=== PATIENT | male | born 1985 | race Caucasian/White ===

== ENCOUNTER 2018-11-10 19:13 | Emergency (ER) | payer OTHER, SELFPAY ==
[2018-11-10 19:20] VITALS: BP 126/82; PULSE 64; RESP 16; TEMP 36.1; O2SAT 100; BMI 26.5
--- NOTE | 2018-11-10 19:28 | ED.MALEGU ---
HPI - Male Genitourinary <JUANCARLOS Paulino - Last Filed: 11/10/18 21:37> General Chief complaint: Urogenital-Male Stated complaint: abdominal pain,groin and scrotum pain Time Seen by Provider: 11/10/18 19:18 Source: patient Mode of arrival: ambulatory Limitations: no limitations History of Present Illness HPI Narrative: 33-year-old healthy male that is a nonsmoker here for complaint of left testicular pain that started this morning. Pain radiates into his left lower abdomen. He denies any trauma to the area. He denies any stressors or relievers of his pain. No penile discharge. No urinary symptoms. No nausea vomiting. No fevers no chills. No rectal pain. He denies any sexual partners in the last 8 months. Last bowel movement was yesterday and was unremarkable. Related Data Home Medications Medication Instructions Recorded Confirmed No Known Home Medications 11/10/18 11/10/18 Allergies Allergy/AdvReac Type Severity Reaction Status Date / Time Sulfa (Sulfonamide Allergy Verified 11/10/18 19:20 Antibiotics) Review of Systems <JUANCARLOS Paulino - Last Filed: 11/10/18 21:37> Constitutional Denies chills, Denies fever(s), Denies lethargy and Denies weakness Eyes Denies change in vision, Denies eye discharge, Denies irritation and Denies loss of vision ENT Ears, Nose, Mouth, and Throat: Denies change in voice, Denies neck pain and Denies sore throat Cardiovascular Denies chest pain, Denies irregular heart rhythm, Denies lightheadedness, Denies palpitations, Denies dyspnea, Denies dyspnea on exertion and Denies orthopnea Respiratory Denies cough, Denies dyspnea, Denies dyspnea on exertion and Denies wheezing Gastrointestinal Comments: Left lower abdomen pain Genitourinary Comments: Left testicular pain Musculoskeletal Denies neck pain Integumentary/Breasts Denies pruritus, Denies erythema, Denies rash and Denies wounds Neurologic Denies confusion, Denies loss of vision and Denies weakness Psychiatric Denies anxiety, Denies confusion, Denies depression, Denies homicidal ideation and Denies suicidal ideation Endocrine Denies palpitations Hematologic/Lymphatic Denies easy bruising Allergic/Immunologic Denies wheezing Exam <JUANCARLOS Paulino - Last Filed: 11/10/18 21:37> Initial Vital Signs Initial Vital Signs: Vital Signs Temperature 96.9 F L 11/10/18 19:20 Pulse Rate 64 11/10/18 19:20 Respiratory Rate 16 11/10/18 19:20 Blood Pressure 126/82 11/10/18 19:20 Pulse Oximetry 100 11/10/18 19:20 Const General: cooperative and well developed Nutritional Appearance: well nourished Orientation: alert, awake, oriented x3 and not confused [facility] Mouth: oral mucosae normal, oropharynx normal and moist mucous membranes Eyes Conjunctivae: conjunctivae normal Sclera: sclerae normal Pupils: PERRL EOM: EOM intact bilaterally Resp Effort & Inspection: normal respiratory effort, able to speak in complete sentences, no respiratory distress and no use of accessory muscles Auscultation: clear to auscultation bilaterally, no rales, no rhonchi and no wheezes Cardio Rate: regular rate Rhythm: regular rhythm Heart Sounds: no click, no gallops, no murmurs and no rubs GI Inspection: non-distended Palpation: soft, no hepatosplenomegaly, No guarding, No pulsatile mass and tender (Tenderness to left lower quadrant and pelvic region) Auscultation: normal bowel sounds General: No CVA tenderness Skin General: no rashes or lesions noted, No jaundice and No petechiae Neuro General: alert, oriented x3, gait normal and no focal motor deficits Speech: speech normal <Barry Hook DO - Last Filed: 11/10/18 23:41> Initial Vital Signs Initial Vital Signs: Vital Signs Temperature 96.9 F L 11/10/18 19:20 Pulse Rate 64 11/10/18 19:20 Respiratory Rate 16 11/10/18 19:20 Blood Pressure 126/82 11/10/18 19:20 Pulse Oximetry 100 11/10/18 19:20 Course <JUANCARLOS Paulino - Last Filed: 11/10/18 21:37> Orders Ordered: ED Orders 11/10/18 19:33 US scrotum Stat 11/10/18 19:34 CT abdomen pelvis w con Stat 11/10/18 20:00 Complete Blood Count AUTO DIFF Stat Comprehensive Metabolic Panel Stat Lipase Stat Discontinued Medications Sodium Chloride (Normal Saline 0.9%) 1,000 mls @ 1,000 mls/hr IV BOLUS ONE Stop: 11/10/18 20:32 Last Infusion: 11/10/18 21:20 Dose: 0 mls/hr Admin: 11/10/18 20:09 Dose: 1,000 mls/hr Ketorolac Tromethamine (Toradol) 15 mg IV NOW ONE Stop: 11/10/18 21:17 Last Admin: 11/10/18 21:19 Dose: 15 mg Vital Signs - 8 hr 11/10/18 19:20 11/10/18 21:05 Temperature 96.9 F L Pulse Rate 64 64 Respiratory Rate 16 18 Blood Pressure 126/82 Blood Pressure [Left Arm] 123/79 Pulse Oximetry 100 99 <Barry Hook DO - Last Filed: 11/10/18 23:41> Orders Ordered: ED Orders 11/10/18 19:33 US scrotum Stat 11/10/18 19:34 CT abdomen pelvis w con Stat 11/10/18 20:00 Complete Blood Count AUTO DIFF Stat Comprehensive Metabolic Panel Stat Lipase Stat Discontinued Medications Sodium Chloride (Normal Saline 0.9%) 1,000 mls @ 1,000 mls/hr IV BOLUS ONE Stop: 11/10/18 20:32 Last Infusion: 11/10/18 21:20 Dose: 0 mls/hr Admin: 11/10/18 20:09 Dose: 1,000 mls/hr Ketorolac Tromethamine (Toradol) 15 mg IV NOW ONE Stop: 11/10/18 21:17 Last Admin: 11/10/18 21:19 Dose: 15 mg Vital Signs - 8 hr 11/10/18 19:20 11/10/18 21:05 Temperature 96.9 F L Pulse Rate 64 64 Respiratory Rate 16 18 Blood Pressure 126/82 Blood Pressure [Left Arm] 123/79 Pulse Oximetry 100 99 MDM - Male Genitourinary <JUANCARLOS Paulino - Last Filed: 11/10/18 21:37> Lab Data Result diagrams: 11/10/18 20:00 11/10/18 20:00 Lab Results 11/10/18 11/10/18 Range/Units 20:00 20:00 WBC 7.4 (4.5-11.0) X10^3/uL RBC 5.05 (4.5-5.9) X10^6/uL Hgb 15.5 (13.5-17.5) g/dL Hct 45.3 (41-53) % MCV 89.6 (80-100) fL MCH 30.6 (26-34) PG MCHC 34.2 (30-36) % RDW 13.9 (11.6-14.8) % Plt Count 269 (150-400) X10^3/uL Neut % (Auto) 58.6 (50-75) % Lymph % (Auto) 32.6 (25-40) % [place] % (Auto) 7.1 (3-14) % Eos % (Auto) 1.4 L (2-4) % Baso % (Auto) 0.3 (0-2) % Neut # (Auto) 4300 (6243-4664) /uL Lymph # (Auto) 2400 (9150-6503) /uL [place] # (Auto) 500 (0-900) /uL Eos # (Auto) 100 (0-450) /uL Baso # (Auto) 0 (0-100) /uL Sodium 141 (137-145) mmol/L Potassium 3.7 (3.4-5.1) mmol/L Chloride 102 (98-107) mmol/L Carbon Dioxide 29 (22-32) mmol/L BUN 13 (9-20) mg/dL Creatinine 0.90 (0.66-1.25) mg/dL Estimated GFR > 60.0 (>60) mL/min BUN/Creatinine Ratio 14.4 (6-22) Glucose 106 H (70-100) mg/dL Calcium 9.2 (8.4-10.2) mg/dL Total Bilirubin 0.5 (0.2-1.3) mg/dL AST 30 (17-59) IU/L ALT 34 (21-72) IU/L Alkaline Phosphatase 76 (38-126) U/L Total Protein 7.8 (6.3-8.2) g/dL Albumin 4.5 (3.5-5.0) g/dL Globulin 3.3 (1.7-4.1) g/dL Albumin/Globulin Ratio 1.4 (1.0-2.8) Lipase 96 (23-300) U/L Urine Dip Bedside Urine Glucose Negative Bedside Urine Bilirubin - Negative Bedside Urine Ketone - Negative Urine Specific [place] 1.025 Bedside Urine Occult Blood - Negative Bedside Urine pH 6.5 Bedside Urine Protein - Negative Bedside Urine Urobilinogen +/- 1mg Bedside Urine Nitrite - Negative Bedside Urine Leukocytes - Negative Esterase Imaging Data Scrotal ultrasound: Radiologist's impression: [address] [id number] Ultrasound Report Signed Patient: Leon Jones AMR#: [id number] : 1985Acct:[id number] Age/Sex: 33 / MDate of Service: 11/10/18 Loc: ED Accession Number: [id number] Procedure: US scrotum Ordering Provider: Donovan Gomez PROCEDURE: US SCROTUM INDICATIONS: LEFT TESTICULAR/GROIN PAIN TECHNIQUE: Real-time scanning was performed of the scrotum and testicles, with image documentation. Color and pulse Doppler interrogation was performed of both testicles. COMPARISON: None. FINDINGS: Right: Testicle is normal in size at 3.0 x 3.1 x 3.8 cm, and homogenous in echotexture. Epididymis is normal in overall size and morphology. No hydrocele or varicoceles. Overlying scrotal skin is normal in thickness. Left: Testicle is normal in size at 2.6 x 3.3 x 4.5 cm, and homogeneous in echotexture. Epididymis is normal in overall size and morphology. No hydrocele but there is a moderate varicocele on the left. Overlying scrotal skin is normal in thickness. Doppler: Color and pulse Doppler demonstrate normal and symmetric arterial flow in both testicles. IMPRESSION: Moderate left-sided varicocele, normal appearance of the testicular parenchyma bilaterally. No sign of epididymitis or orchitis. Please also refer to schedule CT abdomen/pelvis for today. Dictated by: Ulices Sosa M.D. on 11/10/2018 at 20:46 Approved by: Ulices Sosa M.D. on 11/10/2018 at 20:48 CT scan - abdomen: Radiologist's impression: [address] [place] [address] [id number] [address] Scan Report Signed Patient: Leon Jones AMR#: [id number] : 1985Acct:[id number] Age/Sex: 33 / MDate of Service: 11/10/18 Loc: ED Accession Number: [id number] Procedure: CT abdomen pelvis w con Ordering Provider: Donovan Gomez PROCEDURE: CT ABDOMEN PELVIS W CON INDICATIONS: Pain to scrotal area radiating into the left abdomen. TECHNIQUE: After the administration of intravenous contrast, 5 mm thick sections acquired from the diaphragm to the symphysis. 5 mm coronal and sagittal reformats were acquired. For radiation dose reduction, the following was used: automated exposure control, adjustment of mA and/or kV according to patient size. COMPARISON: None. FINDINGS: Image quality: Excellent. ABDOMEN: Lung bases: Lung bases are clear. Heart size is normal. Solid organs: Liver is normal in size and enhancement. Gallbladder appears partially contracted. Biliary system is non dilated. Pancreas enhances normally. Spleen is normal in size and enhancement. No adrenal nodules. Kidneys demonstrate normal size and enhancement, without hydronephrosis. Peritoneum and bowel: Bowel loops demonstrate normal wall thickness and caliber. No free fluid or air. Nodes and vessels: No retroperitoneal or mesenteric adenopathy by size criteria. Aorta and inferior vena cava are normal in size. Miscellaneous: No ventral hernias. PELVIS: Genitourinary: Bladder wall thickness is normal. Miscellaneous: No inguinal hernias or adenopathy. Bones: No suspicious bony lesions. No vertebral body compression fractures. IMPRESSION: Source of pain is not found. Partially contracted gallbladder. No inflammation or mass is found along the retroperitoneum bilaterally. A source of asymmetric left varicocele is not seen. Dictated by: Ulices Sosa M.D. on 11/10/2018 at 20:58 Approved by: Ulices Sosa M.D. on 11/10/2018 at 21:00 [facility] Narrative Medical decision making narrative: CBC and Chem panel were obtained were unremarkable. Lipase was normal. Urinalysis was negative for urinary tract infection. Ultrasound of the scrotum area shows a varicocele to the left testicular area. CT of the abdomen was obtained and was negative for any acute findings. Pain into the groin into abdomen area most likely is referred pain. [id number] ibuprofen as needed for any discomfort. Follow up with primary care provider. For any worsening symptoms return to the emergency room. <Barry Hook DO - Last Filed: 11/10/18 23:41> Lab Data Lab Results 11/10/18 11/10/18 Range/Units 20:00 20:00 WBC 7.4 (4.5-11.0) X10^3/uL RBC 5.05 (4.5-5.9) X10^6/uL Hgb 15.5 (13.5-17.5) g/dL Hct 45.3 (41-53) % MCV 89.6 (80-100) fL MCH 30.6 (26-34) PG MCHC 34.2 (30-36) % RDW 13.9 (11.6-14.8) % Plt Count 269 (150-400) X10^3/uL Neut % (Auto) 58.6 (50-75) % Lymph % (Auto) 32.6 (25-40) % [place] % (Auto) 7.1 (3-14) % Eos % (Auto) 1.4 L (2-4) % Baso % (Auto) 0.3 (0-2) % Neut # (Auto) 4300 (1371-8626) /uL Lymph # (Auto) 2400 (9426-0857) /uL [place] # (Auto) 500 (0-900) /uL Eos # (Auto) 100 (0-450) /uL Baso # (Auto) 0 (0-100) /uL Sodium 141 (137-145) mmol/L Potassium 3.7 (3.4-5.1) mmol/L Chloride 102 (98-107) mmol/L Carbon Dioxide 29 (22-32) mmol/L BUN 13 (9-20) mg/dL Creatinine 0.90 (0.66-1.25) mg/dL Estimated GFR > 60.0 (>60) mL/min BUN/Creatinine Ratio 14.4 (6-22) Glucose 106 H (70-100) mg/dL Calcium 9.2 (8.4-10.2) mg/dL Total Bilirubin 0.5 (0.2-1.3) mg/dL AST 30 (17-59) IU/L ALT 34 (21-72) IU/L Alkaline Phosphatase 76 (38-126) U/L Total Protein 7.8 (6.3-8.2) g/dL Albumin 4.5 (3.5-5.0) g/dL Globulin 3.3 (1.7-4.1) g/dL Albumin/Globulin Ratio 1.4 (1.0-2.8) Lipase 96 (23-300) U/L Urine Dip Bedside Urine Glucose Negative Bedside Urine Bilirubin - Negative Bedside Urine Ketone - Negative Urine Specific [place] 1.025 Bedside Urine Occult Blood - Negative Bedside Urine pH 6.5 Bedside Urine Protein - Negative Bedside Urine Urobilinogen +/- 1mg Bedside Urine Nitrite - Negative Bedside Urine Leukocytes - Negative Esterase Discharge Plan Departure Patient Disposition: Home Clinical Impression: Left varicocele Discharge Date/Time: 11/10/18 21:29 Interventions: ED Discharge Assessment Last Done: 11/10/18 21:27 Instructions: DI for Varicocele Activity Restrictions/Additional Instructions: Laboratory results today were unremarkable. Imaging indicates a varicocele to left testicular area. Use [id number] Tylenol or Motrin as needed for any discomfort. Follow up with her primary care provider. For any worsening symptoms return to the emergency room. Prescriptions: No Action No Known Home Medications RF: 0 Referrals: [facility] [Provider Group] <Barry Hook DO - Last Filed: 11/10/18 23:41> Cosign ED Attending Ran Attestation: I was immediately available in the department for consultation. Documentation has been reviewed. I agree with assessment and plan.
--- NOTE | 2018-11-10 19:33 | DI.US.S_ITS ---
PROCEDURE: US SCROTUM INDICATIONS: LEFT TESTICULAR/GROIN PAIN TECHNIQUE: Real-time scanning was performed of the scrotum and testicles, with image documentation. Color and pulse Doppler interrogation was performed of both testicles. COMPARISON: None. FINDINGS: Right: Testicle is normal in size at 3.0 x 3.1 x 3.8 cm, and homogenous in echotexture. Epididymis is normal in overall size and morphology. No hydrocele or varicoceles. Overlying scrotal skin is normal in thickness. Left: Testicle is normal in size at 2.6 x 3.3 x 4.5 cm, and homogeneous in echotexture. Epididymis is normal in overall size and morphology. No hydrocele but there is a moderate varicocele on the left. Overlying scrotal skin is normal in thickness. Doppler: Color and pulse Doppler demonstrate normal and symmetric arterial flow in both testicles. IMPRESSION: Moderate left-sided varicocele, normal appearance of the testicular parenchyma bilaterally. No sign of epididymitis or orchitis. Please also refer to schedule CT abdomen/pelvis for today. Dictated by: Ulices Sosa M.D. on 11/10/2018 at 20:46 Approved by: Ulices Sosa M.D. on 11/10/2018 at 20:48
--- NOTE | 2018-11-10 19:34 | DI.CT.S_ITS ---
PROCEDURE: CT ABDOMEN PELVIS W CON INDICATIONS: Pain to scrotal area radiating into the left abdomen. TECHNIQUE: After the administration of intravenous contrast, 5 mm thick sections acquired from the diaphragm to the symphysis. 5 mm coronal and sagittal reformats were acquired. For radiation dose reduction, the following was used: automated exposure control, adjustment of mA and/or kV according to patient size. COMPARISON: None. FINDINGS: Image quality: Excellent. ABDOMEN: Lung bases: Lung bases are clear. Heart size is normal. Solid organs: Liver is normal in size and enhancement. Gallbladder appears partially contracted. Biliary system is non dilated. Pancreas enhances normally. Spleen is normal in size and enhancement. No adrenal nodules. Kidneys demonstrate normal size and enhancement, without hydronephrosis. Peritoneum and bowel: Bowel loops demonstrate normal wall thickness and caliber. No free fluid or air. Nodes and vessels: No retroperitoneal or mesenteric adenopathy by size criteria. Aorta and inferior vena cava are normal in size. Miscellaneous: No ventral hernias. PELVIS: Genitourinary: Bladder wall thickness is normal. Miscellaneous: No inguinal hernias or adenopathy. Bones: No suspicious bony lesions. No vertebral body compression fractures. IMPRESSION: Source of pain is not found. Partially contracted gallbladder. No inflammation or mass is found along the retroperitoneum bilaterally. A source of asymmetric left varicocele is not seen. Dictated by: Ulices Sosa M.D. on 11/10/2018 at 20:58 Approved by: Ulices Sosa M.D. on 11/10/2018 at 21:00
[2018-11-10] MEDS: SODIUM CHLORIDE 0.9% 1,000 ML 1000 ML IV (20:09)
[2018-11-10 20:10] LABS: Add Manual Diff / Slide Review NO; Basophils Absolute Auto 0 /uL (0-100); Basophils Percent Auto 0.3 % (0-2); Eosinophils Absolute Auto 100 /uL (0-450); Eosinophils Percent Auto 1.4 % (2-4); Hematocrit 45.3 % (41-53); Hemoglobin 15.5 g/dL (13.5-17.5); Lymphocytes Absolute Auto 2400 /uL (1100-4500); Lymphocytes Percent Auto 32.6 % (25-40); Mean Corpuscular HGB Conc 34.2 % (30-36); Mean Corpuscular Hemoglobin 30.6 PG (26-34); Mean Corpuscular Volume 89.6 fL (80-100); Monocytes Absolute Auto 500 /uL (0-900); Monocytes Percent Auto 7.1 % (3-14); Neutrophils Absolute Auto 4300 /uL (1500-7000); Neutrophils Percent Auto 58.6 % (50-75); Platelet Count 269 X10^3/uL (150-400); Red Blood Cell Count 5.05 X10^6/uL (4.5-5.9); Red Cell Distribution Width 13.9 % (11.6-14.8); White Blood Cell Count 7.4 X10^3/uL (4.5-11.0)
[2018-11-10 20:20] LABS: Alanine Aminotransferase 34 IU/L (21-72); Albumin 4.5 g/dL (3.5-5.0); Albumin Globulin Ratio 1.4 (1.0-2.8); Alkaline Phosphatase 76 U/L (38-126); Aspartate Aminotransferase 30 IU/L (17-59); BUN Creatinine Ratio 14.4 (6-22); Bilirubin Total 0.5 mg/dL (0.2-1.3); Blood Urea Nitrogen 13 mg/dL (9-20); Calcium 9.2 mg/dL (8.4-10.2); Carbon Dioxide 29 mmol/L (22-32); Chloride 102 mmol/L (98-107); Estimated Glomerular Filt Rate > 60.0 mL/min (>60); Globulin 3.3 g/dL (1.7-4.1); Glucose 106 mg/dL (70-100); HEMOLYSIS < 15 (0-50); Lipase 96 U/L (23-300); Potassium 3.7 mmol/L (3.4-5.1); Sodium 141 mmol/L (137-145); Total Protein 7.8 g/dL (6.3-8.2)
--- NOTE | 2018-11-10 20:58 | ED_ITS ---
HPI - Male Genitourinary <JUANCARLOS Paulino - Last Filed: 11/10/18 21:37> General Chief complaint: Urogenital-Male Stated complaint: abdominal pain,groin and scrotum pain Time Seen by Provider: 11/10/18 19:18 Source: patient Mode of arrival: ambulatory Limitations: no limitations History of Present Illness HPI Narrative: 33-year-old healthy male that is a nonsmoker here for complaint of left testicular pain that started this morning. Pain radiates into his left lower abdomen. He denies any trauma to the area. He denies any stressors or relievers of his pain. No penile discharge. No urinary symptoms. No nausea vomiting. No fevers no chills. No rectal pain. He denies any sexual partners in the last 8 months. Last bowel movement was yesterday and was unremarkable. Related Data Home Medications Medication Instructions Recorded Confirmed No Known Home Medications 11/10/18 11/10/18 Allergies Allergy/AdvReac Type Severity Reaction Status Date / Time Sulfa (Sulfonamide Allergy Verified 11/10/18 19:20 Antibiotics) Review of Systems <JUANCARLOS Paulino - Last Filed: 11/10/18 21:37> Constitutional Denies chills, Denies fever(s), Denies lethargy and Denies weakness Eyes Denies change in vision, Denies eye discharge, Denies irritation and Denies loss of vision ENT Ears, Nose, Mouth, and Throat: Denies change in voice, Denies neck pain and Denies sore throat Cardiovascular Denies chest pain, Denies irregular heart rhythm, Denies lightheadedness, Denies palpitations, Denies dyspnea, Denies dyspnea on exertion and Denies orthopnea Respiratory Denies cough, Denies dyspnea, Denies dyspnea on exertion and Denies wheezing Gastrointestinal Comments: Left lower abdomen pain Genitourinary Comments: Left testicular pain Musculoskeletal Denies neck pain Integumentary/Breasts Denies pruritus, Denies erythema, Denies rash and Denies wounds Neurologic Denies confusion, Denies loss of vision and Denies weakness Psychiatric Denies anxiety, Denies confusion, Denies depression, Denies homicidal ideation and Denies suicidal ideation Endocrine Denies palpitations Hematologic/Lymphatic Denies easy bruising Allergic/Immunologic Denies wheezing Exam <JUANCARLOS Paulino - Last Filed: 11/10/18 21:37> Initial Vital Signs Initial Vital Signs: Vital Signs Temperature 96.9 F L 11/10/18 19:20 Pulse Rate 64 11/10/18 19:20 Respiratory Rate 16 11/10/18 19:20 Blood Pressure 126/82 11/10/18 19:20 Pulse Oximetry 100 11/10/18 19:20 Const General: cooperative and well developed Nutritional Appearance: well nourished Orientation: alert, awake, oriented x3 and not confused [facility] Mouth: oral mucosae normal, oropharynx normal and moist mucous membranes Eyes Conjunctivae: conjunctivae normal Sclera: sclerae normal Pupils: PERRL EOM: EOM intact bilaterally Resp Effort & Inspection: normal respiratory effort, able to speak in complete sentences, no respiratory distress and no use of accessory muscles Auscultation: clear to auscultation bilaterally, no rales, no rhonchi and no wheezes Cardio Rate: regular rate Rhythm: regular rhythm Heart Sounds: no click, no gallops, no murmurs and no rubs GI Inspection: non-distended Palpation: soft, no hepatosplenomegaly, No guarding, No pulsatile mass and tender (Tenderness to left lower quadrant and pelvic region) Auscultation: normal bowel sounds General: No CVA tenderness Skin General: no rashes or lesions noted, No jaundice and No petechiae Neuro General: alert, oriented x3, gait normal and no focal motor deficits Speech: speech normal <Barry Hook DO - Last Filed: 11/10/18 23:41> Initial Vital Signs Initial Vital Signs: Vital Signs Temperature 96.9 F L 11/10/18 19:20 Pulse Rate 64 11/10/18 19:20 Respiratory Rate 16 11/10/18 19:20 Blood Pressure 126/82 11/10/18 19:20 Pulse Oximetry 100 11/10/18 19:20 Course <JUANCARLOS Paulino - Last Filed: 11/10/18 21:37> Orders Ordered: ED Orders 11/10/18 19:33 US scrotum Stat 11/10/18 19:34 CT abdomen pelvis w con Stat 11/10/18 20:00 Complete Blood Count AUTO DIFF Stat Comprehensive Metabolic Panel Stat Lipase Stat Discontinued Medications Sodium Chloride (Normal Saline 0.9%) 1,000 mls @ 1,000 mls/hr IV BOLUS ONE Stop: 11/10/18 20:32 Last Infusion: 11/10/18 21:20 Dose: 0 mls/hr Admin: 11/10/18 20:09 Dose: 1,000 mls/hr Ketorolac Tromethamine (Toradol) 15 mg IV NOW ONE Stop: 11/10/18 21:17 Last Admin: 11/10/18 21:19 Dose: 15 mg Vital Signs - 8 hr 11/10/18 19:20 11/10/18 21:05 Temperature 96.9 F L Pulse Rate 64 64 Respiratory Rate 16 18 Blood Pressure 126/82 Blood Pressure [Left Arm] 123/79 Pulse Oximetry 100 99 <Barry Hook DO - Last Filed: 11/10/18 23:41> Orders Ordered: ED Orders 11/10/18 19:33 US scrotum Stat 11/10/18 19:34 CT abdomen pelvis w con Stat 11/10/18 20:00 Complete Blood Count AUTO DIFF Stat Comprehensive Metabolic Panel Stat Lipase Stat Discontinued Medications Sodium Chloride (Normal Saline 0.9%) 1,000 mls @ 1,000 mls/hr IV BOLUS ONE Stop: 11/10/18 20:32 Last Infusion: 11/10/18 21:20 Dose: 0 mls/hr Admin: 11/10/18 20:09 Dose: 1,000 mls/hr Ketorolac Tromethamine (Toradol) 15 mg IV NOW ONE Stop: 11/10/18 21:17 Last Admin: 11/10/18 21:19 Dose: 15 mg Vital Signs - 8 hr 11/10/18 19:20 11/10/18 21:05 Temperature 96.9 F L Pulse Rate 64 64 Respiratory Rate 16 18 Blood Pressure 126/82 Blood Pressure [Left Arm] 123/79 Pulse Oximetry 100 99 MDM - Male Genitourinary <JUANCARLOS Paulino - Last Filed: 11/10/18 21:37> Lab Data Result diagrams: 11/10/18 20:00 11/10/18 20:00 Lab Results 11/10/18 11/10/18 Range/Units 20:00 20:00 WBC 7.4 (4.5-11.0) X10^3/uL RBC 5.05 (4.5-5.9) X10^6/uL Hgb 15.5 (13.5-17.5) g/dL Hct 45.3 (41-53) % MCV 89.6 (80-100) fL MCH 30.6 (26-34) PG MCHC 34.2 (30-36) % RDW 13.9 (11.6-14.8) % Plt Count 269 (150-400) X10^3/uL Neut % (Auto) 58.6 (50-75) % Lymph % (Auto) 32.6 (25-40) % Shannon % (Auto) 7.1 (3-14) % Eos % (Auto) 1.4 L (2-4) % Baso % (Auto) 0.3 (0-2) % Neut # (Auto) 4300 (1730-0110) /uL Lymph # (Auto) 2400 (3298-9730) /uL Shannon # (Auto) 500 (0-900) /uL Eos # (Auto) 100 (0-450) /uL Baso # (Auto) 0 (0-100) /uL Sodium 141 (137-145) mmol/L Potassium 3.7 (3.4-5.1) mmol/L Chloride 102 (98-107) mmol/L Carbon Dioxide 29 (22-32) mmol/L BUN 13 (9-20) mg/dL Creatinine 0.90 (0.66-1.25) mg/dL Estimated GFR > 60.0 (>60) mL/min BUN/Creatinine Ratio 14.4 (6-22) Glucose 106 H (70-100) mg/dL Calcium 9.2 (8.4-10.2) mg/dL Total Bilirubin 0.5 (0.2-1.3) mg/dL AST 30 (17-59) IU/L ALT 34 (21-72) IU/L Alkaline Phosphatase 76 (38-126) U/L Total Protein 7.8 (6.3-8.2) g/dL Albumin 4.5 (3.5-5.0) g/dL Globulin 3.3 (1.7-4.1) g/dL Albumin/Globulin Ratio 1.4 (1.0-2.8) Lipase 96 (23-300) U/L Urine Dip Bedside Urine Glucose Negative Bedside Urine Bilirubin - Negative Bedside Urine Ketone - Negative Urine Specific Sandborn 1.025 Bedside Urine Occult Blood - Negative Bedside Urine pH 6.5 Bedside Urine Protein - Negative Bedside Urine Urobilinogen +/- 1mg Bedside Urine Nitrite - Negative Bedside Urine Leukocytes - Negative Esterase Imaging Data Scrotal ultrasound: Radiologist's impression: [address] [address] Ultrasound Report Signed Patient: Leon Jones AMR#: [id number] : 1985Acct:[id number] Age/Sex: 33 / MDate of Service: 11/10/18 Loc: ED Accession Number: [id number] Procedure: US scrotum Ordering Provider: Donovan Gomez PROCEDURE: US SCROTUM INDICATIONS: LEFT TESTICULAR/GROIN PAIN TECHNIQUE: Real-time scanning was performed of the scrotum and testicles, with image documentation. Color and pulse Doppler interrogation was performed of both testicles. COMPARISON: None. FINDINGS: Right: Testicle is normal in size at 3.0 x 3.1 x 3.8 cm, and homogenous in echotexture. Epididymis is normal in overall size and morphology. No hydrocele or varicoceles. Overlying scrotal skin is normal in thickness. Left: Testicle is normal in size at 2.6 x 3.3 x 4.5 cm, and homogeneous in echotexture. Epididymis is normal in overall size and morphology. No hydrocele but there is a moderate varicocele on the left. Overlying scrotal skin is normal in thickness. Doppler: Color and pulse Doppler demonstrate normal and symmetric arterial flow in both testicles. IMPRESSION: Moderate left-sided varicocele, normal appearance of the testicular parenchyma bilaterally. No sign of epididymitis or orchitis. Please also refer to schedule CT abdomen/pelvis for today. Dictated by: Ulices Sosa M.D. on 11/10/2018 at 20:46 Approved by: Ulices Sosa M.D. on 11/10/2018 at 20:48 CT scan - abdomen: Radiologist's impression: [address] [place] [id number] [address] Scan Report Signed Patient: Leon Jones AMR#: [id number] : 1985Acct:[id number] Age/Sex: 33 / MDate of Service: 11/10/18 Loc: ED Accession Number: [id number] Procedure: CT abdomen pelvis w con Ordering Provider: Donovan Gomez PROCEDURE: CT ABDOMEN PELVIS W CON INDICATIONS: Pain to scrotal area radiating into the left abdomen. TECHNIQUE: After the administration of intravenous contrast, 5 mm thick sections acquired from the diaphragm to the symphysis. 5 mm coronal and sagittal reformats were acquired. For radiation dose reduction, the following was used: automated exposure control, adjustment of mA and/or kV according to patient size. COMPARISON: None. FINDINGS: Image quality: Excellent. ABDOMEN: Lung bases: Lung bases are clear. Heart size is normal. Solid organs: Liver is normal in size and enhancement. Gallbladder appears partially contracted. Biliary system is non dilated. Pancreas enhances normally. Spleen is normal in size and enhancement. No adrenal nodules. Kidneys demonstrate normal size and enhancement, without hydronephrosis. Peritoneum and bowel: Bowel loops demonstrate normal wall thickness and caliber. No free fluid or air. Nodes and vessels: No retroperitoneal or mesenteric adenopathy by size criteria. Aorta and inferior vena cava are normal in size. Miscellaneous: No ventral hernias. PELVIS: Genitourinary: Bladder wall thickness is normal. Miscellaneous: No inguinal hernias or adenopathy. Bones: No suspicious bony lesions. No vertebral body compression fractures. IMPRESSION: Source of pain is not found. Partially contracted gallbladder. No inflammation or mass is found along the retroperitoneum bilaterally. A source of asymmetric left varicocele is not seen. Dictated by: Ulices Sosa M.D. on 11/10/2018 at 20:58 Approved by: Ulices Sosa M.D. on 11/10/2018 at 21:00 [facility] Narrative Medical decision making narrative: CBC and Chem panel were obtained were unremarkable. Lipase was normal. Urinalysis was negative for urinary tract infection. Ultrasound of the scrotum area shows a varicocele to the left testicular area. CT of the abdomen was obtained and was negative for any acute findings. Pain into the groin into abdomen area most likely is referred pain. [id number] ibuprofen as needed for any discomfort. Follow up with primary care provider. For any worsening symptoms return to the emergency room. <Barry Hook DO - Last Filed: 11/10/18 23:41> Lab Data Lab Results 11/10/18 11/10/18 Range/Units 20:00 20:00 WBC 7.4 (4.5-11.0) X10^3/uL RBC 5.05 (4.5-5.9) X10^6/uL Hgb 15.5 (13.5-17.5) g/dL Hct 45.3 (41-53) % MCV 89.6 (80-100) fL MCH 30.6 (26-34) PG MCHC 34.2 (30-36) % RDW 13.9 (11.6-14.8) % Plt Count 269 (150-400) X10^3/uL Neut % (Auto) 58.6 (50-75) % Lymph % (Auto) 32.6 (25-40) % Shannon % (Auto) 7.1 (3-14) % Eos % (Auto) 1.4 L (2-4) % Baso % (Auto) 0.3 (0-2) % Neut # (Auto) 4300 (6430-2323) /uL Lymph # (Auto) 2400 (0378-8252) /uL Shannon # (Auto) 500 (0-900) /uL Eos # (Auto) 100 (0-450) /uL Baso # (Auto) 0 (0-100) /uL Sodium 141 (137-145) mmol/L Potassium 3.7 (3.4-5.1) mmol/L Chloride 102 (98-107) mmol/L Carbon Dioxide 29 (22-32) mmol/L BUN 13 (9-20) mg/dL Creatinine 0.90 (0.66-1.25) mg/dL Estimated GFR > 60.0 (>60) mL/min BUN/Creatinine Ratio 14.4 (6-22) Glucose 106 H (70-100) mg/dL Calcium 9.2 (8.4-10.2) mg/dL Total Bilirubin 0.5 (0.2-1.3) mg/dL AST 30 (17-59) IU/L ALT 34 (21-72) IU/L Alkaline Phosphatase 76 (38-126) U/L Total Protein 7.8 (6.3-8.2) g/dL Albumin 4.5 (3.5-5.0) g/dL Globulin 3.3 (1.7-4.1) g/dL Albumin/Globulin Ratio 1.4 (1.0-2.8) Lipase 96 (23-300) U/L Urine Dip Bedside Urine Glucose Negative Bedside Urine Bilirubin - Negative Bedside Urine Ketone - Negative Urine Specific Sandborn 1.025 Bedside Urine Occult Blood - Negative Bedside Urine pH 6.5 Bedside Urine Protein - Negative Bedside Urine Urobilinogen +/- 1mg Bedside Urine Nitrite - Negative Bedside Urine Leukocytes - Negative Esterase Discharge Plan Departure Patient Disposition: Home Clinical Impression: Left varicocele Discharge Date/Time: 11/10/18 21:29 Interventions: ED Discharge Assessment Last Done: 11/10/18 21:27 Instructions: DI for Varicocele Activity Restrictions/Additional Instructions: Laboratory results today were unremarkable. Imaging indicates a varicocele to left testicular area. Use [id number] Tylenol or Motrin as needed for any discomfort. Follow up with her primary care provider. For any worsening symptoms return to the emergency room. Prescriptions: No Action No Known Home Medications RF: 0 Referrals: [facility] [Provider Group] <Barry Hook DO - Last Filed: 11/10/18 23:41> Cosign ED Attending Ran Attestation: I was immediately available in the department for consultation. Documentation has been reviewed. I agree with assessment and plan.
[2018-11-10 21:05] VITALS: BP 123/79; PULSE 64; RESP 18; O2SAT 99
[2018-11-10] MEDS: KETOROLAC 60 MG/2 ML VIAL 15 MG IV (21:19)
== END 2018-11-10 21:29 | disposition home or self-care (01) ==
PROVIDERS: Emergency Provider Nurse Practitioner Family
DX: I86.1 Scrotal varices (principal)
CPT/HCPCS: 36591; 74177; 76870; 80053; 81003; 83690; 85025; 96361; 96374; 99283; 99285; J1885; Q9967